=== PATIENT | male | born 1965 | race Caucasian/White ===

== ENCOUNTER 2023-05-27 18:50 | Emergency (ER) | payer OTHER ==
[2023-05-27] MEDS ORDERED: APRESOLINE 20 MG/ML INJ IV ONE (19:53)
[2023-05-27] MEDS ORDERED: APRESOLINE 20 MG/ML INJ ONE (19:56)
[2023-05-27 20:00] LABS: Absolute Neutrophil Ct (ANC) 5.03 x10^3/uL (1.4-6.9); BASOPHIL % 0.9 % (0.0-0.4); Basophil (Absolute #) 0.09 x10^3/uL (0-0.4); Eosinophil % 7.1 % (0.00-5.0); Eosinophil (Absolute #) 0.74 x10^3/uL (0-0.5); Hematocrit 39.4 % (42-50); Hemoglobin 13.1 g/dL (12.5-18.0); IMMATURE GRAN # 0.05 x10^3u/L (0.00-0.03); IMMATURE GRAN % 0.5 % (0.00-0.4); Lymphocyte (Absolute #) 3.71 x10^3/uL (1.0-4.6); Lymphocytes % 35.5 % (24.0-44.0); Mean Cell Volume 90.4 fL (78-100); Mean Corpuscular Hgb Concent. 33.2 g/dL (32-36); Mean Platelet Volume 9.3 fL (7.5-11.0); Monocyte (Absolute #) 0.84 x10^3/uL (0.0-1.3); Platelet Count 301 x10^3/uL (150-450); Red Blood Count 4.36 x10^6/uL (4.1-5.6); White Blood Count 10.5 x10^3/uL (4.0-10.5)
[2023-05-27 20:04] VITALS: TEMP 98.3
[2023-05-27 20:15] LABS: ALBUMIN 4.5 g/dL (3.5-5.0); ALKALINE PHOSPHATASE 72 U/L (38-126); ANION GAP 14.2 MEQ/L (5-15); BLOOD UREA NITROGEN 19 mg/dL (9-20); CHLORIDE 100 mmol/L (98-107); CK-Creatinine Phosphokinase 188 U/L (55-170); Calcium 9.1 mg/dL (8.4-10.2); Carbon Dioxide 28 mmol/L (22-30); Creatinine 1 1.01 mg/dL (0.66-1.25); EST GLOMERULAR FILTRATION RATE > 60.0 ML/MIN; Glucose 176 mg/dL (74-106); NT PRO BNPII 82.8 pg/mL (<300); SGOT/AST 39 U/L (17-59); SGPT/ALT 52 U/L (0-50); SODIUM 138 mmol/L (137-145); Total Protein 7.9 g/dL (6.3-8.2)
[2023-05-27 21:21] VITALS: RESP 17
--- NOTE | 2023-05-27 21:57 | ERPHSYRPT ---
- History of Present Illness Time Seen by Provider: 05/27/23 19:32 Source: patient Exam Limitations: no limitations Patient Subjective Stated Complaint: pt states "I was sitting on the couch and my blood pressure was reading 211/97." Triage Nursing Assessment: pt ambulatory to bed by self, pt alert and oriented x3, skin pwd, pt c/o htn that started today, at home was reading 211/97, pt takes amlodipine and benazepril for blood pressure, pt denies chest pain, shortness or breath, and headache. Physician History: 57-year-old male with history of hypertension taking amlodipine/BenzePrO presented in the ER with chief complaint of elevated blood pressure 211/92 prior to arrival while he was watching TV. Patient reported he felt little off, shaky inside but no blurry vision, headache, numbness tingling or focal weakness. Denies any chest pain palpitations or shortness of breath. Patient took his routine medication but did not improve and decided to be seen in the ER. Patient reports his usual blood pressure runs around 160. No abdominal pain nausea or vomiting reported. No difficulty ambulation/dizziness or unsteadiness. Timing/Duration: today, constant Modifying Factors: Improves With: nothing Associated Symptoms: denies symptoms Allergies/Adverse Reactions: No Known Drug Allergies Allergy (Verified 05/27/23 19:58) Home Medications: Amlodipine Besylate 5 mg [Norvasc 5 mg] 5 mg PO DAILY 05/27/23 [History] Benazepril HCl 40 mg PO DAILY 05/27/23 [History] Metformin HCl 500 mg [Glucophage 500 MG] 500 mg PO BID 05/27/23 [History] Simvastatin 10 mg [Zocor 10MG] 10 mg PO HS 05/27/23 [History] Tramadol HCl 50 mg [Ultram 50 mg] 50 mg PO TID PRN 05/27/23 [History] Hx Tetanus, Diphtheria Vaccination/Date Given: No Hx Influenza Vaccination/Date Given: No Hx Pneumococcal Vaccination/Date Given: No Immunizations Up to Date: No Travel Risk - International Travel Have you traveled outside of the country in past 3 weeks: No - Coronavirus Screening Are you exhibiting any of the following symptoms?: No Close contact with a COVID-19 positive Pt in past 14-21 Days: No - Vaccine Status Have you recieved a Covid-19 vaccination: No - Review of Systems Constitutional: No Symptoms Eyes: No Symptoms Ears, Nose, & Throat: No Symptoms Respiratory: No Symptoms Cardiac: No Symptoms Abdominal/Gastrointestinal: No Symptoms Genitourinary Symptoms: No Symptoms Musculoskeletal: No Symptoms Skin: No Symptoms Neurological: No Symptoms Psychological: No Symptoms Hematologic/Lymphatic: No Symptoms Immunological/Allergic: No Symptoms - Past Medical History Pertinent Past Medical History: Yes Neurological History: No Pertinent History ENT History: No Pertinent History Cardiac History: High Cholesterol, Hypertension Respiratory History: Pulmonary Embolism Endocrine Medical History: Diabetes Type II Musculoskeletal History: Fractures GI Medical History: No Pertinent History History: No Pertinent History Psycho-Social History: Anxiety, Depression, Panic Disorder Male Reproductive Disorders: No Pertinent History - Past Surgical History Past Surgical History: No Neuro Surgical History: No Pertinent History Cardiac: No Pertinent History Respiratory: No Pertinent History Gastrointestinal: No Pertinent History Genitourinary: No Pertinent History Musculoskeletal: No Pertinent History Male Surgical History: No Pertinent History - Social History Smoking Status: Never smoker Exposure to second hand smoke: No Drug Use: none Patient Lives Alone: No - Nursing Vital Signs Nursing Vital Signs: Initial Vital Signs Temperature 98.3 F 05/27/23 20:01 Pulse Rate 77 05/27/23 20:01 Respiratory Rate 16 05/27/23 20:01 O2 Sat by Pulse Oximetry 97 05/27/23 20:01 Pain Scale Pain Intensity 0 - Physical Exam General Appearance: no apparent distress, alert Eye Exam: PERRL/EOMI, eyes nml inspection Ears, Nose, Throat Exam: normal ENT inspection, TMs normal, pharynx normal, moist mucous membranes Neck Exam: normal inspection, non-tender, supple, full range of motion Respiratory Exam: normal breath sounds, lungs clear Cardiovascular Exam: regular rate/rhythm, normal heart sounds, normal peripheral pulses Gastrointestinal/Abdomen Exam: soft, normal bowel sounds, No tenderness Back Exam: normal inspection, normal range of motion, No CVA tenderness Extremity Exam: normal inspection, normal range of motion, pelvis stable Neurologic Exam: alert, oriented x 3, cooperative, chemical packager II-XII nml as tested, normal mood/affect, nml cerebellar function, nml station & gait, sensation nml, No motor deficits Skin Exam: normal color SpO2 Interpretation: normal SpO2: 98 O2 Delivery: Room Air - Course EKG Interpreted by Me: RATE (76), Sinus Rhythm, Left [place] Deviation, LAFB, Right Bundle Branch Block, Q-wave, Non-specific ST Changes Ordered Tests: Active Orders 24 hr Category Date Time Status Guideman STAT Care 05/27/23 19:53 Active EKG-ER Only STAT Care 05/27/23 19:52 Active IV Insertion STAT Care 05/27/23 19:52 Active Pulse Oximetry (ED) STAT Care 05/27/23 19:52 Active CHEST 1 VIEW (PORTABLE) Stat Exams 05/27/23 19:52 Taken CBC W DIFF Stat Lab 05/27/23 19:50 Completed CK-Creatinine Phosphokinase Stat Lab 05/27/23 19:50 Completed CMP Stat Lab 05/27/23 19:50 Completed NT PRO BNPII Stat Lab 05/27/23 19:50 Completed TROPONIN Q4H Lab 05/27/23 19:50 Completed TROPONIN Q4H Lab 05/28/23 00:00 Ordered TROPONIN Q4H Lab 05/28/23 04:00 Ordered TROPONIN Stat Lab 05/27/23 21:50 Received Medication Summary Discontinued Medications Generic Name Dose Route Start Last Admin Trade Name Freq PRN Reason Stop Dose Admin Hydralazine HCl 10 mg 05/27/23 19:53 05/27/23 20:11 Hydralazine Hcl 20 Mg/Ml Vial IV 05/27/23 19:54 10 mg STAT ONE Administration Hydralazine HCl Confirm 05/27/23 19:56 Hydralazine Hcl 20 Mg/Ml Vial Administered 05/27/23 19:57 Dose 20 mg .ROUTE .[facility] ONE Lab/Rad Data: Laboratory Result Diagrams 05/27/23 19:50 05/27/23 19:50 Laboratory Results 05/27/23 05/27/23 05/27/23 Range/Units 19:50 19:50 19:50 WBC 10.5 (4.0-10.5) x10^3/uL RBC 4.36 (4.1-5.6) x10^6/uL Hgb 13.1 (12.5-18.0) g/dL Hct 39.4 L (42-50) % MCV 90.4 (78-100) fL MCH 30.0 (26-32) pg MCHC 33.2 (32-36) g/dL RDW 12.0 (11.5-14.0) % Plt Count 301 (150-450) x10^3/uL MPV 9.3 (7.5-11.0) fL Gran % 48.0 (36.0-66.0) % Immature Gran % (Auto) 0.5 H (0.00-0.4) % Nucleat RBC Rel Count 0.0 (0.00-0.1) % Eos # (Auto) 0.74 H (0-0.5) x10^3/uL Immature Gran # (Auto) 0.05 H (0.00-0.03) x10^3u/L Absolute Lymphs (auto) 3.71 (1.0-4.6) x10^3/uL Absolute Monos (auto) 0.84 (0.0-1.3) x10^3/uL Absolute Nucleated RBC 0.00 (0.00-0.01) x10^3u/L Lymphocytes % 35.5 (24.0-44.0) % Monocytes % 8.0 (0.0-12.0) % Eosinophils % 7.1 H (0.00-5.0) % Basophils % 0.9 (0.0-0.4) % Absolute Granulocytes 5.03 (1.4-6.9) x10^3/uL Basophils # 0.09 (0-0.4) x10^3/uL Sodium 138 (137-145) mmol/L Potassium 4.0 (3.5-5.1) mmol/L Chloride 100 (98-107) mmol/L Carbon Dioxide 28 (22-30) mmol/L Anion Gap 14.2 (5-15) MEQ/L BUN 19 (9-20) mg/dL Creatinine 1.01 (0.66-1.25) mg/dL Estimated GFR > 60.0 ML/MIN Glucose 176 H (74-106) mg/dL Calcium 9.1 (8.4-10.2) mg/dL Total Bilirubin 0.60 (0.2-1.3) mg/dL AST 39 (17-59) U/L ALT 52 H (0-50) U/L Alkaline Phosphatase 72 (38-126) U/L Creatine Kinase 188 H (55-170) U/L Troponin I < 0.012 (0.000-0.034) ng/mL NT-Pro-B Natriuret Pep 82.8 (<300) pg/mL Serum Total Protein 7.9 (6.3-8.2) g/dL Albumin 4.5 (3.5-5.0) g/dL - Progress Progress: improved Progress Note: 05/27/23 22:57 57-year-old male with history of hypertension taking amlodipine/BenzePrO presented in the ER with chief complaint of elevated blood pressure 211/92 prior to arrival while he was watching TV. Patient reported he felt little off, shaky inside but no blurry vision, headache, numbness tingling or focal weakness. Denies any chest pain palpitations or shortness of breath. Patient took his routine medication but did not improve and decided to be seen in the ER. Patient reports his usual blood pressure runs around 160. No abdominal pain nausea or vomiting reported. No difficulty ambulation/dizziness or unsteadiness. Patient is asymptomatic in the ER with blood pressure in the low 200s. EKG is normal sinus rhythm with right bundle branch block and LVH pattern. I believe patient has chronically elevated pressure. Neuro exam remained nonfocal to her stay in the ER. I have given him hydralazine 10 mg IV and it improved in 170s. Normal white count, grossly unremarkable chemistries, negative troponin and BNP. Chest x-ray negative for any acute cardiopulmonary findings reviewed by me, official report is pending. Patient EKG has a local changes from previous with right bundle and left anterior fascicular block and LVH pattern which I do not think patient needs to be admitted but definitely needs outpatient follow-up with cardiology and better control of blood pressure. I would give him clonidine to take as needed for persistent blood pressure greater than 160 until he follows up. Patient is counseled on low-salt diet, keeping a log and outp atient follow-up with PCP. Discussed signs symptoms of worsening needing return to ER which she seems understanding. Stable for discharge. Counseled pt/family regarding: lab results, diagnosis, need for follow-up, rad results Medical Desision Making - Independent Historian Additional History obtained from: Spouse - Diagnostic Testing Diagnostic test were ordered, analyzed, and reviewed by me: Yes Radiological Interpretation: Interpreted by me, Reviewed by me - Risk of complications The pt has a mod risk of morbidity or mortality based on: Need for prescription drug management - Departure Departure Disposition: Home Clinical Impression: Uncontrolled hypertension Condition: Stable Critical Care Time: No Referrals: JUDY HINDS [Primary Care Provider] - Follow up with PCP 1 day DARCI OMNTANO [CONSULTING PHYSICIAN] - Follow up/PCP as directed (Call tomorrow for appointment for reevaluation) Instructions: Malignant Hypertension (DC) Additional Instructions: Take low-salt diet. Monitor your blood pressure regularly, keep a log and follow-up with PCP. Take clonidine only as needed for blood pressure greater than 160. Return to ER for persistent high blood pressure, headache, dizziness, visual disturbance, chest pain/shortness of breath or abdominal pain etc. Prescriptions: Clonidine HCl 0.1 mg [Clonidine 0.1 mg Tablet] 0.1 mg PO Q12H PRN PRN 10 Days #10 tablet PRN Reason: Hypertension
[2023-05-27 23:21] VITALS: BP 181/92; PULSE 83; O2SAT 95
--- NOTE | 2023-05-28 08:45 | XRAY ---
Indication: Hypertension. Comparison: None Portable chest demonstrates normal heart and lungs. Bony thorax intact with mild degenerative changes.
== END 2023-05-27 23:21 | disposition home or self-care (01) ==
LOC: ED 18:50
DX: I10 Essential (primary) hypertension (principal); E78.5 Hyperlipidemia, unspecified; E11.9 Type 2 diabetes mellitus without complications; Z79.84 Long term (current) use of oral hypoglycemic drugs; Z79.891 Long term (current) use of opiate analgesic; Z79.899 Other long term (current) drug therapy; Z28.310 Unvaccinated for COVID-19
CPT/HCPCS: 36000; 36415; 71045; 80053; 82550; 83880; 84484; 85025; 93005; 93041; 94760; 96374; 99284; J0360